=== PATIENT | male | born 1950 | race Caucasian/White ===

== ENCOUNTER 2020-04-22 19:45 | Inpatient (IN) ==
[2020-04-22 21:01] LABS: Basophils % 0.4 % (0.0-0.8); Eosinophils # 0.1 10*3/uL (0.0-0.87); Eosinophils % 1.4 % (0.00-10.9); Hematocrit 41.9 VOL% (42.0-52.0); Hemoglobin 14.2 GM/DL (14.0-18.0); Immature Granulocytes % 0.3 %; Immature Granulocytes Absolute 0.02 #; Lymphocytes # 2.2 10*3/uL (1.4-4.0); Lymphocytes % 28.8 % (21.2-54.2); Mean Corpuscular HGB Conc 33.9 GM/DL (32-36); Mean Platelet Volume 11.1 FL (9.6-12.0); Neutrophils % 51.1 % (38.7-73.9); Platelet Count 107 T/CUMM (130-400); Red Blood Count 4.15 MC/CUMM (3.8-5.5); Red Cell Distribution Width 12.7 % (9.3-17.3); White Blood Count 7.7 T/CUMM (4-12)
[2020-04-22 21:22] LABS: Band Neutrophils 4 % (0-10); Lymphocytes 33 % (20-55); Platelet Estimate Adequate; Segmented Neutrophils 49 % (50-85); Total Cells Counted 100
[2020-04-22 21:30] LABS: Albumin 3.9 G/DL (3.4-5.0); Bilirubin,Total 0.4 MG/DL (0.2-1.0); Calcium 9.5 MG/DL (8.5-10.1); Ferritin 484.8 ng/ml (26-388); Osmolality,Calculated 276.2 MOS/KG (273-304); Total Protein 8.5 G/DL (6.4-8.3)
[2020-04-22] MEDS ORDERED: SODIUM CHLORIDE 0.9% 1,000 ML IV STA (22:01)
[2020-04-22 22:39] LABS: Apearance,Urine CLEAR (Clear); Bacteria,Urine Occasional /HPF (Few); Bilirubin,Urine Negative (Negative); Blood, Urine Small mg/dL (Negative); Glucose,Urine (UA) >=500 mg/dL (Negative); Ketones,Urine 5 mg/dL (Negative); Mucus,Urine Occasional /LPF (Occasional); Nitrite,Urine Negative (Negative); Protein,Urine 100 MG/DL; RBC,Urine 1 /HPF (0-4); Urine Color Yellow (Yellow); Urine Urobilinogen < 2.0 EU/DL (0.2-1.0); WBC,Urine <1 /HPF (0-6)
[2020-04-22 23:03] LABS: Barbiturates Screen,Urine Negative (Negative); Benzodiazepines Screen,Urine Negative (Negative); Cannabinoid Screen,Urine Negative (Negative); Opiate Screen,Urine Positive (Negative); Phencyclidine Screen,Urine Negative (Negative)
[2020-04-22 23:44] LABS: ABG Base Excess 0.3 MMOL/L (-2.5-2.5); ABG HCO3 24.6 MMOL/L (20-26); ABG Oxygen Saturation 94.9 % (95-100); ABG PCO2 35.8 MM HG (35-48); ABG PH 7.436 (7.35-7.45); ABG PO2 72.3 MM HG (80-95)
[2020-04-23] MEDS ORDERED: ACETAMINOPHEN 325 MG TABLET PO PRN (00:01)
[2020-04-23] MEDS ORDERED: ONDANSETRON 4 MG/2 ML VIAL IV PRN (00:01)
[2020-04-23] MEDS: AZITHROMYCIN INJ 500 MG in SODIUM CHLORIDE 0.9% 250 ML IV SCH (02:10)
[2020-04-23] MEDS: SODIUM CHLORIDE 0.9% 1,000 ML IV SCH ×3 (02:35→16:50)
[2020-04-23 05:41] LABS: Basophils % 0.3 % (0.0-0.8); Eosinophils % 0.3 % (0.00-10.9); Hematocrit 37.1 VOL% (42.0-52.0); Hemoglobin 12.6 GM/DL (14.0-18.0); Immature Granulocytes % 0.4 %; Immature Granulocytes Absolute 0.03 #; Lymphocytes # 1.5 10*3/uL (1.4-4.0); Lymphocytes % 20.1 % (21.2-54.2); Mean Corpuscular Volume 98.7 FL (87-102); Mean Platelet Volume 11.2 FL (9.6-12.0); Neutrophils % 64.9 % (38.7-73.9); Platelet Count 88 T/CUMM (130-400); Red Blood Count 3.76 MC/CUMM (3.8-5.5); Red Cell Distribution Width 12.6 % (9.3-17.3); White Blood Count 7.2 T/CUMM (4-12)
[2020-04-23 06:09] LABS: Albumin 3.3 G/DL (3.4-5.0); Bilirubin,Total 0.6 MG/DL (0.2-1.0); Calcium 8.8 MG/DL (8.5-10.1); Osmolality,Calculated 278.2 MOS/KG (273-304); Total Protein 7.3 G/DL (6.4-8.3)
[2020-04-23] MEDS ORDERED: ONDANSETRON 4 MG TABLET PO PRN (09:09)
[2020-04-23] MEDS ORDERED: MELATONIN 3 MG TABLET PO PRN (09:09)
[2020-04-23] MEDS ORDERED: NITROGLYCERIN SL 0.4 MG TABLET SL PRN (09:09)
[2020-04-23] MEDS ORDERED: SIMETHICONE CHEW 125 MG TABLET PO PRN (09:09)
[2020-04-23] MEDS ORDERED: DEXTROSE 50% 25 GM/50 ML VIAL IV PRN (09:12)
[2020-04-23] MEDS ORDERED: GLUCAGON 1 MG VIAL IM PRN (09:12)
[2020-04-23] MEDS ORDERED: INSULIN REGULAR 100 UNIT/ML ONE (09:52)
[2020-04-23] MEDS: FUROSEMIDE 40 MG TABLET PO SCH (10:23)
[2020-04-23] MEDS: PANTOPRAZOLE 40 MG VIAL IV SCH (10:23)
[2020-04-23] MEDS: carvediloL 6.25 MG TABLET PO SCH ×2 (10:23→16:50)
[2020-04-23 10:49] LABS: Atypical Lymphocytes S; Band Neutrophils 2 % (0-10); Lymphocytes 6 % (20-55); Platelet Estimate Adequate; Polychromasia Slight; Segmented Neutrophils 83 % (50-85); Total Cells Counted 100
[2020-04-23] MEDS: INSULIN REGULAR ** CONC 500 UNIT/ML ** 20 ML VIAL SUBCUT SCH ×3 (10:50→20:32)
[2020-04-23] MEDS: HYOSCYAMINE 0.125 MG TABLET SL SCH ×2 (12:59→17:03)
[2020-04-23] MEDS: INSULIN LISPRO 100 UNIT/ML SUBCUT SCH ×3 (12:59→20:31)
[2020-04-23] MEDS: GABAPENTIN 600 MG TABLET PO SCH ×2 (14:14→20:30)
[2020-04-23] MEDS: TEMAZEPAM 7.5 MG CAPSULE PO SCH (20:29)
[2020-04-23] MEDS: PRASUGREL 10 MG TABLET PO SCH (20:29)
[2020-04-23] MEDS: LOSARTAN 50 MG TABLET PO SCH (20:30)
[2020-04-23] MEDS: ASCORBIC ACID 500 MG TABLET PO SCH (20:30)
[2020-04-23] MEDS: ASPIRIN EC 81 MG TABLET PO SCH (20:30)
[2020-04-23] MEDS: ATORVASTATIN 40 MG TABLET PO SCH (20:30)
[2020-04-23] MEDS ORDERED: HYOSCYAMINE 0.125 MG TABLET SL PRN (23:45)
[2020-04-24] MEDS: SODIUM CHLORIDE 0.9% 1,000 ML IV SCH ×3 (00:35→20:18)
[2020-04-24] MEDS: AZITHROMYCIN INJ 500 MG in SODIUM CHLORIDE 0.9% 250 ML IV SCH (02:00)
[2020-04-24] MEDS: INSULIN LISPRO 100 UNIT/ML SUBCUT SCH ×4 (07:33→20:20)
[2020-04-24] MEDS: carvediloL 6.25 MG TABLET PO SCH ×2 (10:13→17:23)
[2020-04-24] MEDS: LORATADINE 10 MG TABLET PO SCH (10:13)
[2020-04-24] MEDS: CHOLECALCIFEROL 1,000 UNIT TABLET PO SCH (10:14)
[2020-04-24] MEDS: FAMOTIDINE 20 MG TABLET PO SCH (10:14)
[2020-04-24] MEDS: INSULIN REGULAR ** CONC 500 UNIT/ML ** 20 ML VIAL SUBCUT SCH ×3 (10:14→20:21)
[2020-04-24] MEDS: GABAPENTIN 600 MG TABLET PO SCH ×3 (10:14→20:19)
[2020-04-24] MEDS: PANTOPRAZOLE 40 MG VIAL IV SCH (10:14)
[2020-04-24] MEDS: FUROSEMIDE 40 MG TABLET PO SCH (10:14)
[2020-04-24] MEDS: ASCORBIC ACID 500 MG TABLET PO SCH ×2 (10:14→20:20)
[2020-04-24] MEDS: ASPIRIN EC 81 MG TABLET PO SCH (20:19)
[2020-04-24] MEDS: LOSARTAN 50 MG TABLET PO SCH (20:19)
[2020-04-24] MEDS: ATORVASTATIN 40 MG TABLET PO SCH (20:20)
[2020-04-24] MEDS: TEMAZEPAM 7.5 MG CAPSULE PO SCH (20:20)
[2020-04-24] MEDS: PRASUGREL 10 MG TABLET PO SCH (20:20)
[2020-04-25] MEDS: AZITHROMYCIN INJ 500 MG in SODIUM CHLORIDE 0.9% 250 ML IV SCH (02:14)
[2020-04-25 05:23] LABS: Basophils % 0.3 % (0.0-0.8); Eosinophils # 0.1 10*3/uL (0.0-0.87); Eosinophils % 1.9 % (0.00-10.9); Hematocrit 38.6 VOL% (42.0-52.0); Hemoglobin 12.8 GM/DL (14.0-18.0); Immature Granulocytes % 0.3 %; Immature Granulocytes Absolute 0.02 #; Lymphocytes # 1.4 10*3/uL (1.4-4.0); Lymphocytes % 21.9 % (21.2-54.2); Mean Corpuscular HGB Conc 33.2 GM/DL (32-36); Mean Corpuscular Volume 101.3 FL (87-102); Mean Platelet Volume 11.3 FL (9.6-12.0); Monocytes % 10.4 % (1.7-12.7); Neutrophils % 65.2 % (38.7-73.9); Platelet Count 103 T/CUMM (130-400); Red Blood Count 3.81 MC/CUMM (3.8-5.5); Red Cell Distribution Width 12.6 % (9.3-17.3); White Blood Count 6.2 T/CUMM (4-12)
[2020-04-25 05:35] LABS: Albumin 3.1 G/DL (3.4-5.0); Bilirubin,Total 0.8 MG/DL (0.2-1.0); Calcium 8.3 MG/DL (8.5-10.1); Osmolality,Calculated 282.5 MOS/KG (273-304); Total Protein 6.9 G/DL (6.4-8.3)
[2020-04-25] MEDS: SODIUM CHLORIDE 0.9% 1,000 ML IV SCH ×2 (06:25→14:36)
[2020-04-25] MEDS: INSULIN LISPRO 100 UNIT/ML SUBCUT SCH ×4 (07:11→21:42)
[2020-04-25] MEDS: ASCORBIC ACID 500 MG TABLET PO SCH ×2 (08:36→21:41)
[2020-04-25] MEDS: FUROSEMIDE 40 MG TABLET PO SCH (08:36)
[2020-04-25] MEDS: FAMOTIDINE 20 MG TABLET PO SCH (08:36)
[2020-04-25] MEDS: GABAPENTIN 600 MG TABLET PO SCH ×3 (08:37→21:41)
[2020-04-25] MEDS: CHOLECALCIFEROL 1,000 UNIT TABLET PO SCH (08:37)
[2020-04-25] MEDS: PANTOPRAZOLE 40 MG VIAL IV SCH (08:37)
[2020-04-25] MEDS: LORATADINE 10 MG TABLET PO SCH (08:37)
[2020-04-25] MEDS: carvediloL 6.25 MG TABLET PO SCH ×2 (08:37→16:31)
[2020-04-25] MEDS: INSULIN REGULAR ** CONC 500 UNIT/ML ** 20 ML VIAL SUBCUT SCH ×3 (08:38→21:42)
[2020-04-25] MEDS: LOSARTAN 50 MG TABLET PO SCH (21:40)
[2020-04-25] MEDS: ASPIRIN EC 81 MG TABLET PO SCH (21:40)
[2020-04-25] MEDS: TEMAZEPAM 7.5 MG CAPSULE PO SCH (21:41)
[2020-04-25] MEDS: PRASUGREL 10 MG TABLET PO SCH (21:41)
[2020-04-25] MEDS: ATORVASTATIN 40 MG TABLET PO SCH (21:42)
[2020-04-26] MEDS: SODIUM CHLORIDE 0.9% 1,000 ML IV SCH ×2 (02:50→16:28)
[2020-04-26] MEDS: INSULIN LISPRO 100 UNIT/ML SUBCUT SCH ×4 (07:25→23:12)
[2020-04-26] MEDS: CHOLECALCIFEROL 1,000 UNIT TABLET PO SCH (08:33)
[2020-04-26] MEDS: ASCORBIC ACID 500 MG TABLET PO SCH ×2 (08:33→21:30)
[2020-04-26] MEDS: FUROSEMIDE 40 MG TABLET PO SCH (08:33)
[2020-04-26] MEDS: FAMOTIDINE 20 MG TABLET PO SCH (08:33)
[2020-04-26] MEDS: carvediloL 6.25 MG TABLET PO SCH ×2 (08:33→16:51)
[2020-04-26] MEDS: AZITHROMYCIN 250 MG TABLET PO SCH (08:34)
[2020-04-26] MEDS: LORATADINE 10 MG TABLET PO SCH (08:34)
[2020-04-26] MEDS: POTASSIUM CHLORIDE 8 MEQ CAPSULE PO SCH (08:34)
[2020-04-26] MEDS: PANTOPRAZOLE 40 MG VIAL IV SCH (08:34)
[2020-04-26] MEDS: INSULIN REGULAR ** CONC 500 UNIT/ML ** 20 ML VIAL SUBCUT SCH ×2 (08:35→16:27)
[2020-04-26] MEDS: GABAPENTIN 600 MG TABLET PO SCH ×3 (08:39→21:30)
[2020-04-26 09:05] LABS: Basophils % 0.2 % (0.0-0.8); Eosinophils % 0.6 % (0.00-10.9); Hematocrit 39.2 VOL% (42.0-52.0); Hemoglobin 13.6 GM/DL (14.0-18.0); Immature Granulocytes % 0.2 %; Immature Granulocytes Absolute 0.01 #; Lymphocytes # 1.3 10*3/uL (1.4-4.0); Lymphocytes % 25.1 % (21.2-54.2); Mean Corpuscular HGB Conc 34.7 GM/DL (32-36); Mean Corpuscular Volume 98.2 FL (87-102); Mean Platelet Volume 10.6 FL (9.6-12.0); Monocytes % 13.2 % (1.7-12.7); Neutrophils % 60.7 % (38.7-73.9); Platelet Count 101 T/CUMM (130-400); Red Blood Count 3.99 MC/CUMM (3.8-5.5); Red Cell Distribution Width 12.5 % (9.3-17.3); White Blood Count 5.1 T/CUMM (4-12)
[2020-04-26 09:24] LABS: Hypochromasia Slight; Macrocytosis Slight; Platelet Estimate Decreased
[2020-04-26 09:34] LABS: Calcium 8.4 MG/DL (8.5-10.1); Osmolality,Calculated 274.2 MOS/KG (273-304)
[2020-04-26] MEDS: TEMAZEPAM 7.5 MG CAPSULE PO SCH (21:30)
[2020-04-26] MEDS: LOSARTAN 50 MG TABLET PO SCH (21:30)
[2020-04-26] MEDS: ATORVASTATIN 40 MG TABLET PO SCH (21:30)
[2020-04-26] MEDS: PRASUGREL 10 MG TABLET PO SCH (21:30)
[2020-04-26] MEDS: ASPIRIN EC 81 MG TABLET PO SCH (21:30)
[2020-04-27] MEDS: INSULIN REGULAR ** CONC 500 UNIT/ML ** 20 ML VIAL SUBCUT SCH ×2 (04:16→10:08)
[2020-04-27] MEDS: SODIUM CHLORIDE 0.9% 1,000 ML IV SCH (06:11)
[2020-04-27 06:38] LABS: Calcium 8.3 MG/DL (8.5-10.1); Osmolality,Calculated 268.1 MOS/KG (273-304)
[2020-04-27 08:26] LABS: Basophils % 0.2 % (0.0-0.8); Eosinophils % 0.4 % (0.00-10.9); Hematocrit 42.4 VOL% (42.0-52.0); Hemoglobin 14.6 GM/DL (14.0-18.0); Immature Granulocytes % 0.4 %; Immature Granulocytes Absolute 0.02 #; Lymphocytes # 1.8 10*3/uL (1.4-4.0); Mean Corpuscular HGB Conc 34.4 GM/DL (32-36); Mean Corpuscular Volume 98.8 FL (87-102); Mean Platelet Volume 10.2 FL (9.6-12.0); Monocytes % 13.3 % (1.7-12.7); Neutrophils % 52.7 % (38.7-73.9); Platelet Count 108 T/CUMM (130-400); Red Blood Count 4.29 MC/CUMM (3.8-5.5); Red Cell Distribution Width 12.6 % (9.3-17.3); White Blood Count 5.3 T/CUMM (4-12)
[2020-04-27] MEDS: PANTOPRAZOLE 40 MG VIAL IV SCH (08:43)
[2020-04-27] MEDS: POTASSIUM CHLORIDE 8 MEQ CAPSULE PO SCH (08:45)
[2020-04-27] MEDS: ASCORBIC ACID 500 MG TABLET PO SCH (08:46)
[2020-04-27] MEDS: FUROSEMIDE 40 MG TABLET PO SCH (08:46)
[2020-04-27] MEDS: GABAPENTIN 600 MG TABLET PO SCH (08:46)
[2020-04-27] MEDS: CHOLECALCIFEROL 1,000 UNIT TABLET PO SCH (08:46)
[2020-04-27] MEDS: AZITHROMYCIN 250 MG TABLET PO SCH (08:46)
[2020-04-27 08:47] VITALS: BP 144/49
[2020-04-27] MEDS: FAMOTIDINE 20 MG TABLET PO SCH (08:47)
[2020-04-27] MEDS: LORATADINE 10 MG TABLET PO SCH (08:47)
[2020-04-27] MEDS: carvediloL 6.25 MG TABLET PO SCH (08:47)
[2020-04-27 08:51] LABS: Hypochromasia 1+; Microcytosis Slight; Ovalocytes Slight; Platelet Estimate Decreased
[2020-04-27] MEDS: INSULIN LISPRO 100 UNIT/ML SUBCUT SCH (09:59)
== END 2020-04-27 10:26 | disposition home health service (06) | DRG 177 ==
LOC: EDUNIT# → EDBD → N.ED 19:45 → N.EDINP 04-23 → N.2E 04-23 01:28
PROVIDERS: ADMIT Internal Medicine; ATTEND Internal Medicine

== ENCOUNTER 2020-04-30 18:06 | Inpatient (IN) ==
[2020-04-30 18:24] LABS: Basophils % 0.1 % (0.0-0.8); Hematocrit 41.7 VOL% (42.0-52.0); Hemoglobin 14.4 GM/DL (14.0-18.0); Immature Granulocytes % 0.4 %; Immature Granulocytes Absolute 0.03 #; Lymphocytes # 1.4 10*3/uL (1.4-4.0); Lymphocytes % 17.6 % (21.2-54.2); Mean Corpuscular HGB Conc 34.5 GM/DL (32-36); Mean Corpuscular Volume 97.7 FL (87-102); Mean Platelet Volume 11.1 FL (9.6-12.0); Monocytes % 6.4 % (1.7-12.7); Neutrophils % 75.5 % (38.7-73.9); Platelet Count 110 T/CUMM (130-400); Red Blood Count 4.27 MC/CUMM (3.8-5.5); Red Cell Distribution Width 12.5 % (9.3-17.3); White Blood Count 7.8 T/CUMM (4-12)
[2020-04-30] MEDS ORDERED: cefTRIAXone 1,000 MG in SODIUM CHLORIDE 0.9% 100 ML IV STA (18:34)
[2020-04-30] MEDS ORDERED: SODIUM CHLORIDE 0.9% 1,000 ML IV STA ×2 (18:34→21:29)
[2020-04-30 18:55] LABS: Bilirubin,Total 0.6 MG/DL (0.2-1.0); Calcium 8.6 MG/DL (8.5-10.1); Ferritin 1002.8 ng/ml (26-388); Osmolality,Calculated 274.9 MOS/KG (273-304); Total Protein 7.9 G/DL (6.4-8.3)
[2020-04-30] MEDS ORDERED: GLUCAGON 1 MG VIAL IM PRN (23:52)
[2020-04-30] MEDS ORDERED: IBUPROFEN 600 MG TABLET PO PRN (23:52)
[2020-04-30] MEDS ORDERED: DEXTROSE 50% 25 GM/50 ML VIAL IV PRN (23:52)
[2020-04-30] MEDS ORDERED: ONDANSETRON 4 MG/2 ML VIAL IV PRN (23:52)
[2020-05-01] MEDS: SODIUM CHLORIDE 0.9% 1,000 ML IV SCH ×3 (00:02→17:36)
[2020-05-01 04:13] LABS: ABG Base Excess -0.8 MMOL/L (-2.5-2.5); ABG HCO3 23.7 MMOL/L (20-26); ABG Oxygen Saturation 97.9 % (95-100); ABG PCO2 33.3 MM HG (35-48); ABG PH 7.439 (7.35-7.45); ABG TCO2 19.6 MMOL/L (23-27)
[2020-05-01] MEDS: INSULIN REGULAR 100 UNIT/ML SUBCUT SCH ×3 (06:06→17:49)
[2020-05-01] MEDS ORDERED: INSULIN REGULAR 100 UNIT/ML ONE (06:10)
[2020-05-01] MEDS ORDERED: NITROGLYCERIN SL 0.4 MG TABLET SL PRN (07:08)
[2020-05-01] MEDS ORDERED: guaiFENesin/CODEINE 5 ML LIQUID PO PRN (07:08)
[2020-05-01] MEDS ORDERED: FUROSEMIDE 40 MG TABLET ONE (08:42)
[2020-05-01] MEDS ORDERED: DOCUSATE SODIUM 100 MG CAPSULE ONE (08:42)
[2020-05-01] MEDS ORDERED: carvediloL 3.125 MG TABLET ONE (08:43)
[2020-05-01] MEDS ORDERED: PANTOPRAZOLE 40 MG TABLET PO ONE (08:43)
[2020-05-01] MEDS ORDERED: FAMOTIDINE 20 MG TABLET ONE (08:44)
[2020-05-01] MEDS ORDERED: HYDROXYCHLOROQUINE 200 MG TABLET PO SCH ×2 (09:00)
[2020-05-01] MEDS: DOCUSATE SODIUM 100 MG CAPSULE PO SCH ×2 (09:02→20:44)
[2020-05-01] MEDS: carvediloL 6.25 MG TABLET PO SCH ×2 (09:05→20:43)
[2020-05-01] MEDS: FUROSEMIDE 40 MG TABLET PO SCH (09:05)
[2020-05-01] MEDS: FAMOTIDINE 20 MG TABLET PO SCH (09:05)
[2020-05-01] MEDS: PANTOPRAZOLE 40 MG TABLET PO SCH (09:45)
[2020-05-01] MEDS: CHOLECALCIFEROL 1,000 UNIT TABLET PO SCH (09:45)
[2020-05-01] MEDS: DEXAMETHASONE 4 MG/1 ML VIAL IV SCH ×3 (10:14→21:18)
[2020-05-01] MEDS ORDERED: ENOXAPARIN 40 MG/0.4 ML SYRINGE ONE (10:20)
[2020-05-01] MEDS: ENOXAPARIN 40 MG/0.4 ML SYRINGE SUBCUT SCH ×2 (10:21→20:44)
[2020-05-01] MEDS ORDERED: INSULIN LISPRO 100 UNIT/ML ONE (14:25)
[2020-05-01] MEDS: ZINC SULFATE 220 MG CAPSULE PO SCH (17:36)
[2020-05-01] MEDS: ATORVASTATIN 40 MG TABLET PO SCH (20:43)
[2020-05-01] MEDS: PRASUGREL 10 MG TABLET PO SCH (20:44)
[2020-05-01] MEDS: LOSARTAN 50 MG TABLET PO SCH (21:26)
[2020-05-02] MEDS: INSULIN REGULAR 100 UNIT/ML SUBCUT SCH ×4 (00:10→18:36)
[2020-05-02] MEDS: SODIUM CHLORIDE 0.9% 1,000 ML IV SCH ×3 (03:26→16:58)
[2020-05-02] MEDS: DOCUSATE SODIUM 100 MG CAPSULE PO SCH ×2 (09:26→20:57)
[2020-05-02] MEDS: carvediloL 6.25 MG TABLET PO SCH ×2 (09:26→20:57)
[2020-05-02] MEDS: FUROSEMIDE 40 MG TABLET PO SCH (09:26)
[2020-05-02] MEDS: PANTOPRAZOLE 40 MG TABLET PO SCH (09:26)
[2020-05-02] MEDS: FAMOTIDINE 20 MG TABLET PO SCH (09:26)
[2020-05-02] MEDS: CHOLECALCIFEROL 1,000 UNIT TABLET PO SCH (09:27)
[2020-05-02] MEDS: DEXAMETHASONE 4 MG/1 ML VIAL IV SCH ×3 (09:27→20:57)
[2020-05-02] MEDS: DOXYCYCLINE HYCLATE INJ 100 MG in SODIUM CHLORIDE 0.9% 100 ML IV SCH ×2 (09:28→20:58)
[2020-05-02] MEDS: ENOXAPARIN 40 MG/0.4 ML SYRINGE SUBCUT SCH ×2 (09:28→20:58)
[2020-05-02 10:22] LABS: Hematocrit 38.4 VOL% (42.0-52.0); Hemoglobin 13.5 GM/DL (14.0-18.0); Immature Granulocytes % 0.4 %; Immature Granulocytes Absolute 0.02 #; Lymphocytes # 0.6 10*3/uL (1.4-4.0); Mean Corpuscular HGB Conc 35.2 GM/DL (32-36); Mean Corpuscular Volume 95.5 FL (87-102); Mean Platelet Volume 11.1 FL (9.6-12.0); Monocytes % 5.1 % (1.7-12.7); Neutrophils % 84.5 % (38.7-73.9); Platelet Count 109 T/CUMM (130-400); Red Blood Count 4.02 MC/CUMM (3.8-5.5); Red Cell Distribution Width 12.4 % (9.3-17.3); White Blood Count 5.5 T/CUMM (4-12)
[2020-05-02 10:41] LABS: Albumin 2.6 G/DL (3.4-5.0); Bilirubin,Total 0.6 MG/DL (0.2-1.0); Calcium 9.1 MG/DL (8.5-10.1); Total Protein 7.5 G/DL (6.4-8.3)
[2020-05-02] MEDS: ATORVASTATIN 40 MG TABLET PO SCH (20:57)
[2020-05-02] MEDS: LOSARTAN 50 MG TABLET PO SCH (20:57)
[2020-05-02] MEDS: PRASUGREL 10 MG TABLET PO SCH (20:57)
[2020-05-03] MEDS: INSULIN REGULAR 100 UNIT/ML SUBCUT SCH ×4 (00:42→18:12)
[2020-05-03] MEDS: SODIUM CHLORIDE 0.9% 1,000 ML IV SCH ×3 (04:29→16:11)
[2020-05-03 06:28] LABS: Basophils % 0.1 % (0.0-0.8); Hematocrit 40.7 VOL% (42.0-52.0); Hemoglobin 14.3 GM/DL (14.0-18.0); Immature Granulocytes % 0.5 %; Immature Granulocytes Absolute 0.04 #; Lymphocytes # 0.7 10*3/uL (1.4-4.0); Lymphocytes % 8.1 % (21.2-54.2); Mean Corpuscular HGB Conc 35.1 GM/DL (32-36); Mean Corpuscular Volume 95.8 FL (87-102); Monocytes % 5.6 % (1.7-12.7); Neutrophils % 85.7 % (38.7-73.9); Platelet Count 134 T/CUMM (130-400); Red Blood Count 4.25 MC/CUMM (3.8-5.5); Red Cell Distribution Width 12.5 % (9.3-17.3); White Blood Count 8.4 T/CUMM (4-12)
[2020-05-03] MEDS: carvediloL 6.25 MG TABLET PO SCH ×2 (09:03→20:30)
[2020-05-03] MEDS: ENOXAPARIN 40 MG/0.4 ML SYRINGE SUBCUT SCH ×2 (09:03→20:30)
[2020-05-03] MEDS: CHOLECALCIFEROL 1,000 UNIT TABLET PO SCH (09:03)
[2020-05-03] MEDS: PANTOPRAZOLE 40 MG TABLET PO SCH (09:03)
[2020-05-03] MEDS: FUROSEMIDE 40 MG TABLET PO SCH (09:03)
[2020-05-03] MEDS: DOCUSATE SODIUM 100 MG CAPSULE PO SCH ×2 (09:03→20:30)
[2020-05-03] MEDS: FAMOTIDINE 20 MG TABLET PO SCH (09:03)
[2020-05-03] MEDS: ZINC SULFATE 220 MG CAPSULE PO SCH (09:03)
[2020-05-03] MEDS: INSULIN GLARGINE 100 UNIT/ML SUBCUT SCH (09:04)
[2020-05-03] MEDS: DEXAMETHASONE 4 MG/1 ML VIAL IV SCH ×3 (09:05→20:30)
[2020-05-03] MEDS: DOXYCYCLINE HYCLATE INJ 100 MG in SODIUM CHLORIDE 0.9% 100 ML IV SCH ×2 (09:06→20:33)
[2020-05-03] MEDS: ATORVASTATIN 40 MG TABLET PO SCH (20:30)
[2020-05-03] MEDS: LOSARTAN 50 MG TABLET PO SCH (20:30)
[2020-05-03] MEDS: PRASUGREL 10 MG TABLET PO SCH (20:30)
[2020-05-04] MEDS: INSULIN REGULAR 100 UNIT/ML SUBCUT SCH ×2 (00:38→08:00)
[2020-05-04] MEDS: SODIUM CHLORIDE 0.9% 1,000 ML IV SCH ×3 (03:09→18:13)
[2020-05-04] MEDS ORDERED: hydrALAZINE 20 MG/1 ML VIAL IV ONE (04:17)
[2020-05-04] MEDS ORDERED: ETOMIDATE 20 MG/10 ML VIAL IV ONE (05:19)
[2020-05-04] MEDS ORDERED: VECURONIUM 10 MG VIAL IV ONE (05:21)
[2020-05-04 06:21] LABS: Allen Test Positive; Pt O2 Delivery Device Ventilator
[2020-05-04] MEDS ORDERED: hydrALAZINE 20 MG/1 ML VIAL IV PRN (06:21)
[2020-05-04 06:22] LABS: ABG Base Excess -9.3 MMOL/L (-2.5-2.5); ABG HCO3 17.2 MMOL/L (20-26); ABG Oxygen Saturation 98.8 % (95-100); ABG PH 7.267 (7.35-7.45)
[2020-05-04] MEDS ORDERED: amLODIPine 10 MG TABLET PER TUBE SCH (06:22)
[2020-05-04] MEDS ORDERED: FAMOTIDINE 20 MG/2 ML VIAL IV SCH (06:30)
[2020-05-04] MEDS ORDERED: SODIUM CHLORIDE 0.9% 1,000 ML IV ONE (07:01)
[2020-05-04] MEDS ORDERED: NOREPINEPHRINE 4 MG/4 ML VIAL IV ONE (07:02)
[2020-05-04 07:16] LABS: Amorphous Crystals,Urine Few /HPF (Few); Apearance,Urine CLEAR (Clear); Bacteria,Urine Occasional /HPF (Few); Bilirubin,Urine Negative (Negative); Blood, Urine Moderate mg/dL (Negative); Glucose,Urine (UA) >=500 mg/dL (Negative); Hyaline Casts,Urine 4 /LPF (0-3); Ketones,Urine Negative (Negative); Mucus,Urine Occasional /LPF (Occasional); Nitrite,Urine Negative (Negative); Protein,Urine 100 MG/DL; Squamous Epithelial Cell,Urine Occasional /HPF (0-10); Urine Color Yellow (Yellow); Urine Specific Gravity 1.022 (1.001-1.035); Urine Urobilinogen < 2.0 EU/DL (0.2-1.0); WBC,Urine <1 /HPF (0-6)
[2020-05-04] MEDS: NOREPINEPHRINE 8 MG in SODIUM CHLORIDE 0.9% 242 ML IV PRN (07:26)
[2020-05-04] MEDS ORDERED: ENOXAPARIN 60 MG/0.6 ML SYRINGE ONE (07:52)
[2020-05-04] MEDS ORDERED: INSULIN REGULAR 100 UNIT/ML ONE (08:03)
[2020-05-04 08:16] LABS: Basophils % 0.1 % (0.0-0.8); Hematocrit 42.2 VOL% (42.0-52.0); Hemoglobin 14.3 GM/DL (14.0-18.0); Immature Granulocytes % 0.7 %; Immature Granulocytes Absolute 0.09 #; Lymphocytes # 0.6 10*3/uL (1.4-4.0); Lymphocytes % 4.6 % (21.2-54.2); Mean Corpuscular HGB Conc 33.9 GM/DL (32-36); Mean Corpuscular Volume 98.1 FL (87-102); Mean Platelet Volume 11.4 FL (9.6-12.0); Monocytes % 7.5 % (1.7-12.7); Neutrophils % 87.1 % (38.7-73.9); Platelet Count 165 T/CUMM (130-400); Red Cell Distribution Width 12.8 % (9.3-17.3); White Blood Count 12.9 T/CUMM (4-12)
[2020-05-04 08:34] LABS: Lymphocytes 4 % (20-55); Segmented Neutrophils 89 % (50-85); Total Cells Counted 100
[2020-05-04 08:35] LABS: Hypochromasia 1+; Microcytosis Slight; Platelet Estimate Adequate
[2020-05-04 08:43] LABS: Osmolality,Calculated 320.1 MOS/KG (273-304)
[2020-05-04] MEDS: INSULIN GLARGINE 100 UNIT/ML SUBCUT SCH (08:54)
[2020-05-04] MEDS: DOCUSATE SODIUM 100 MG CAPSULE PO SCH ×2 (08:54→20:17)
[2020-05-04] MEDS: DEXAMETHASONE 4 MG/1 ML VIAL IV SCH (08:54)
[2020-05-04] MEDS: CHOLECALCIFEROL 1,000 UNIT TABLET PO SCH (08:54)
[2020-05-04] MEDS: ENOXAPARIN 60 MG/0.6 ML SYRINGE SUBCUT SCH ×2 (08:54→20:18)
[2020-05-04] MEDS ORDERED: cloNIDine 0.3 MG/24 HR PATCH TRANSDERM SCH (09:00)
[2020-05-04] MEDS ORDERED: DEXTROSE 10% 250 ML BAG IV PRN (09:16)
[2020-05-04] MEDS ORDERED: SODIUM PHOSPHATE INJ 26 MMOL in SODIUM CHLORIDE 0.9% 250 ML IV PRN (09:16)
[2020-05-04] MEDS ORDERED: INSULIN REGULAR 100 UNIT/ML IV ONE (09:16)
[2020-05-04] MEDS ORDERED: POTASSIUM CHLORIDE RIDER 10 MEQ in PREMIX 1 EACH IV PRN (09:16)
[2020-05-04] MEDS ORDERED: MAGNESIUM SULF RIDER 2 GM in PREMIX 1 EACH IV PRN (09:16)
[2020-05-04] MEDS ORDERED: MAGNESIUM SULF RIDER 4 GM in PREMIX 1 EACH IV PRN (09:16)
[2020-05-04] MEDS: DOXYCYCLINE HYCLATE INJ 100 MG in SODIUM CHLORIDE 0.9% 100 ML IV SCH ×2 (10:00→20:26)
[2020-05-04] MEDS ORDERED: INSULIN REGULAR 100 UNIT/ML SUBCUT SCH (10:00)
[2020-05-04] MEDS: INSULIN REGULAR DRIP 100 ML IV SCH ×2 (11:12→16:54)
[2020-05-04] MEDS: MIDAZOLAM 100 MG in SODIUM CHLORIDE 0.9% 80 ML IV PRN (12:15)
[2020-05-04] MEDS ORDERED: SODIUM CHLORIDE 0.9% 1,000 ML IV SCH (14:16)
[2020-05-04 14:24] LABS: Calcium 9.1 MG/DL (8.5-10.1); Osmolality,Calculated 317.6 MOS/KG (273-304)
[2020-05-04 18:01] LABS: Calcium 9.3 MG/DL (8.5-10.1); Osmolality,Calculated 313.1 MOS/KG (273-304)
[2020-05-04] MEDS: DEXTROSE 10% 250 ML BAG IV PRN (19:49)
[2020-05-04] MEDS: PRASUGREL 10 MG TABLET PER TUBE SCH (20:17)
[2020-05-04 21:45] LABS: Calcium 9.3 MG/DL (8.5-10.1); Osmolality,Calculated 313.7 MOS/KG (273-304)
[2020-05-05] MEDS: SODIUM CHLORIDE 0.9% 1,000 ML IV SCH (00:34)
[2020-05-05] MEDS: DEXTROSE 10% 250 ML BAG IV PRN (01:25)
[2020-05-05] MEDS: DEXTROSE 5% NACL 0.45% 1,000 ML IV SCH ×2 (01:38→13:29)
[2020-05-05 03:31] LABS: Basophils % 0.1 % (0.0-0.8); Hematocrit 39.4 VOL% (42.0-52.0); Hemoglobin 12.9 GM/DL (14.0-18.0); Immature Granulocytes % 0.3 %; Immature Granulocytes Absolute 0.03 #; Lymphocytes # 1.1 10*3/uL (1.4-4.0); Lymphocytes % 11.8 % (21.2-54.2); Mean Corpuscular HGB Conc 32.7 GM/DL (32-36); Mean Corpuscular Volume 102.1 FL (87-102); Mean Platelet Volume 10.9 FL (9.6-12.0); Monocytes % 7.8 % (1.7-12.7); Platelet Count 119 T/CUMM (130-400); Red Blood Count 3.86 MC/CUMM (3.8-5.5); Red Cell Distribution Width 13.2 % (9.3-17.3); White Blood Count 9.2 T/CUMM (4-12)
[2020-05-05 03:50] LABS: Calcium 8.6 MG/DL (8.5-10.1); Osmolality,Calculated 316.3 MOS/KG (273-304)
[2020-05-05 03:52] LABS: Atypical Lymphocytes Few; Band Neutrophils 1 % (0-10); Hypochromasia 1+; Lymphocytes 9 % (20-55); Segmented Neutrophils 86 % (50-85); Total Cells Counted 100
[2020-05-05 03:53] LABS: Microcytosis Slight
[2020-05-05 05:01] LABS: ABG Base Excess -2.4 MMOL/L (-2.5-2.5); ABG HCO3 22.4 MMOL/L (20-26); ABG Oxygen Saturation 98.9 % (95-100); ABG PCO2 33.7 MM HG (35-48); ABG PH 7.411 (7.35-7.45); ABG TCO2 18.6 MMOL/L (23-27)
[2020-05-05] MEDS: INSULIN REGULAR DRIP 100 ML IV SCH ×2 (05:51→10:10)
[2020-05-05] MEDS: MIDAZOLAM 100 MG in SODIUM CHLORIDE 0.9% 80 ML IV PRN (06:55)
[2020-05-05] MEDS: ENOXAPARIN 60 MG/0.6 ML SYRINGE SUBCUT SCH ×2 (08:01→20:02)
[2020-05-05] MEDS: DOCUSATE SODIUM 100 MG CAPSULE PO SCH ×2 (08:02→20:02)
[2020-05-05] MEDS: ZINC SULFATE 220 MG CAPSULE PO SCH (08:02)
[2020-05-05] MEDS: CHOLECALCIFEROL 1,000 UNIT TABLET PO SCH (08:02)
[2020-05-05] MEDS: DEXAMETHASONE 4 MG/1 ML VIAL IV SCH (08:02)
[2020-05-05] MEDS: FENOFIBRATE 145 MG TABLET PO SCH (09:19)
[2020-05-05] MEDS: FAMOTIDINE 20 MG/2 ML VIAL IV SCH (09:19)
[2020-05-05] MEDS: DOXYCYCLINE HYCLATE INJ 100 MG in SODIUM CHLORIDE 0.9% 100 ML IV SCH ×2 (09:19→20:04)
[2020-05-05] MEDS: NOREPINEPHRINE 8 MG in SODIUM CHLORIDE 0.9% 242 ML IV PRN (12:28)
[2020-05-05] MEDS ORDERED: INSULIN GLARGINE 100 UNIT/ML SUBCUT SCH (13:00)
[2020-05-05] MEDS: PRASUGREL 10 MG TABLET PER TUBE SCH (20:02)
[2020-05-05] MEDS: ASPIRIN EC 81 MG TABLET PO SCH (20:04)
[2020-05-05] MEDS ORDERED: INSULIN REGULAR 100 UNIT/ML IV ONE (21:18)
[2020-05-05] MEDS ORDERED: INSULIN REGULAR 100 UNIT/ML SUBCUT SCH (22:00)
[2020-05-05] MEDS: ACETAMINOPHEN 325 MG TABLET PO PRN (22:31)
[2020-05-06] MEDS ORDERED: INSULIN REGULAR 100 UNIT/ML SUBCUT SCH
[2020-05-06] MEDS ORDERED: DEXTROSE 5% NACL 0.45% 1,000 ML IV SCH (03:00)
[2020-05-06] MEDS: INSULIN REGULAR DRIP 100 ML IV PRN ×5 (03:07→22:31)
[2020-05-06 04:39] LABS: Basophils % 0.2 % (0.0-0.8); Hematocrit 38.9 VOL% (42.0-52.0); Hemoglobin 12.8 GM/DL (14.0-18.0); Immature Granulocytes % 0.7 %; Immature Granulocytes Absolute 0.04 #; Lymphocytes # 0.8 10*3/uL (1.4-4.0); Lymphocytes % 14.2 % (21.2-54.2); Mean Corpuscular HGB Conc 32.9 GM/DL (32-36); Mean Corpuscular Volume 100.5 FL (87-102); Monocytes % 7.3 % (1.7-12.7); Neutrophils % 77.6 % (38.7-73.9); Platelet Count 110 T/CUMM (130-400); Red Blood Count 3.87 MC/CUMM (3.8-5.5); Red Cell Distribution Width 13.3 % (9.3-17.3); White Blood Count 5.8 T/CUMM (4-12)
[2020-05-06 04:40] LABS: ABG Base Excess -2.8 MMOL/L (-2.5-2.5); ABG HCO3 22.1 MMOL/L (20-26); ABG Oxygen Saturation 99.3 % (95-100); ABG PCO2 33.9 MM HG (35-48); ABG PH 7.404 (7.35-7.45); ABG TCO2 18.4 MMOL/L (23-27)
[2020-05-06 04:57] LABS: Ferritin 1115.3 ng/ml (26-388)
[2020-05-06 05:42] LABS: Osmolality,Calculated 325.4 MOS/KG (273-304)
[2020-05-06] MEDS: MIDAZOLAM 100 MG in SODIUM CHLORIDE 0.9% 80 ML IV PRN (05:55)
[2020-05-06] MEDS: DOCUSATE SODIUM 100 MG CAPSULE PO SCH ×2 (10:02→22:30)
[2020-05-06] MEDS: DEXAMETHASONE 4 MG/1 ML VIAL IV SCH (10:02)
[2020-05-06] MEDS: FENOFIBRATE 145 MG TABLET PO SCH (10:02)
[2020-05-06] MEDS: ENOXAPARIN 60 MG/0.6 ML SYRINGE SUBCUT SCH ×2 (10:03→21:30)
[2020-05-06] MEDS: FAMOTIDINE 20 MG/2 ML VIAL IV SCH (10:03)
[2020-05-06] MEDS: CHOLECALCIFEROL 1,000 UNIT TABLET PO SCH (10:08)
[2020-05-06] MEDS: DOXYCYCLINE HYCLATE INJ 100 MG in SODIUM CHLORIDE 0.9% 100 ML IV SCH ×2 (10:25→22:30)
[2020-05-06 10:28] LABS: Calcium 9.2 MG/DL (8.5-10.1)
[2020-05-06] MEDS: ACETAMINOPHEN 325 MG TABLET PO PRN ×3 (11:45→22:00)
[2020-05-06 20:32] LABS: Calcium 9.3 MG/DL (8.5-10.1); Osmolality,Calculated 322.1 MOS/KG (273-304)
[2020-05-06] MEDS: ATORVASTATIN 40 MG TABLET PER TUBE SCH (21:30)
[2020-05-06] MEDS: PRASUGREL 10 MG TABLET PER TUBE SCH (21:30)
[2020-05-06] MEDS: ASPIRIN EC 81 MG TABLET PO SCH (21:30)
[2020-05-06 23:59] LABS: Calcium 9.2 MG/DL (8.5-10.1)
[2020-05-07] MEDS: INSULIN REGULAR DRIP 100 ML IV PRN ×3 (02:41→09:52)
[2020-05-07 03:42] LABS: Basophils % 0.2 % (0.0-0.8); Hematocrit 43.5 VOL% (42.0-52.0); Hemoglobin 14.4 GM/DL (14.0-18.0); Immature Granulocytes % 0.5 %; Immature Granulocytes Absolute 0.05 #; Lymphocytes # 0.8 10*3/uL (1.4-4.0); Lymphocytes % 8.4 % (21.2-54.2); Mean Corpuscular HGB Conc 33.1 GM/DL (32-36); Mean Corpuscular Volume 100.5 FL (87-102); Mean Platelet Volume 11.7 FL (9.6-12.0); Monocytes % 6.4 % (1.7-12.7); Neutrophils % 84.5 % (38.7-73.9); Platelet Count 138 T/CUMM (130-400); Red Blood Count 4.33 MC/CUMM (3.8-5.5); Red Cell Distribution Width 13.2 % (9.3-17.3); White Blood Count 9.8 T/CUMM (4-12)
[2020-05-07 04:04] LABS: Calcium 9.5 MG/DL (8.5-10.1); Osmolality,Calculated 320.9 MOS/KG (273-304)
[2020-05-07 04:07] LABS: Ferritin 1008.8 ng/ml (26-388)
[2020-05-07] MEDS: ACETAMINOPHEN 325 MG TABLET PO PRN ×5 (05:00→21:05)
[2020-05-07 05:02] LABS: Allen Test Positive; Pt O2 Delivery Device Ventilator
[2020-05-07 05:05] LABS: ABG HCO3 23.6 MMOL/L (20-26); ABG PCO2 35.2 MM HG (35-48)
[2020-05-07] MEDS: FAMOTIDINE 20 MG/2 ML VIAL IV SCH (08:34)
[2020-05-07] MEDS: FENOFIBRATE 145 MG TABLET PO SCH (08:34)
[2020-05-07] MEDS: DEXAMETHASONE 4 MG/1 ML VIAL IV SCH (08:34)
[2020-05-07] MEDS: CHOLECALCIFEROL 1,000 UNIT TABLET PO SCH (08:34)
[2020-05-07] MEDS: ENOXAPARIN 60 MG/0.6 ML SYRINGE SUBCUT SCH ×2 (08:34→20:31)
[2020-05-07] MEDS: DOXYCYCLINE HYCLATE INJ 100 MG in SODIUM CHLORIDE 0.9% 100 ML IV SCH ×2 (08:35→21:40)
[2020-05-07] MEDS: DOCUSATE SODIUM 100 MG CAPSULE PO SCH ×2 (11:11→20:31)
[2020-05-07] MEDS ORDERED: DILTIAZEM 50 MG/10 ML VIAL IV ONE (12:22)
[2020-05-07] MEDS ORDERED: DILTIAZEM 25 MG/5 ML VIAL IV ONE (12:23)
[2020-05-07] MEDS ORDERED: DILTIAZEM 30 MG TABLET PO SCH (13:00)
[2020-05-07] MEDS: PIPERACILLIN/TAZOBACTAM 3,375 MG in SODIUM CHLORIDE 0.9% 100 ML IV SCH ×2 (13:30→20:32)
[2020-05-07] MEDS ORDERED: DIGOXIN 0.5 MG/2 ML AMP IV ONE (14:05)
[2020-05-07] MEDS: dilTIAZem Drip 125 MG/125 ML PREMIX IV SCH ×2 (14:28→20:42)
[2020-05-07] MEDS: VANCOMYCIN INJ 1,500 MG in SODIUM CHLORIDE 0.9% 500 ML IV SCH (17:36)
[2020-05-07] MEDS: ASPIRIN EC 81 MG TABLET PO SCH (20:31)
[2020-05-07] MEDS: PRASUGREL 10 MG TABLET PER TUBE SCH (20:31)
[2020-05-07] MEDS: ATORVASTATIN 40 MG TABLET PER TUBE SCH (20:31)
[2020-05-07] MEDS ORDERED: INSULIN REGULAR 100 UNIT/ML IV ONE (21:55)
[2020-05-08] MEDS ORDERED: INSULIN REGULAR 100 UNIT/ML IV ONE ×4 (02:01→19:35)
[2020-05-08] MEDS: PIPERACILLIN/TAZOBACTAM 3,375 MG in SODIUM CHLORIDE 0.9% 100 ML IV SCH ×3 (04:50→21:26)
[2020-05-08] MEDS: dilTIAZem Drip 125 MG/125 ML PREMIX IV SCH ×2 (04:50→14:40)
[2020-05-08 05:20] LABS: ABG Base Excess -2.9 MMOL/L (-2.5-2.5); ABG HCO3 20.5 MMOL/L (20-26); ABG Oxygen Saturation 96.7 % (95-100); ABG PH 7.424 (7.35-7.45); ABG PO2 91.5 MM HG (80-95); ABG TCO2 21.5 MMOL/L (23-27); Allen Test Positive; Pt O2 Delivery Device Ventilator
[2020-05-08] MEDS: INSULIN REGULAR DRIP 100 ML IV PRN ×2 (06:19→12:20)
[2020-05-08 07:03] LABS: Basophils % 0.1 % (0.0-0.8); Hematocrit 41.4 VOL% (42.0-52.0); Hemoglobin 13.6 GM/DL (14.0-18.0); Immature Granulocytes % 0.6 %; Immature Granulocytes Absolute 0.08 #; Lymphocytes # 1.1 10*3/uL (1.4-4.0); Lymphocytes % 7.7 % (21.2-54.2); Mean Corpuscular HGB Conc 32.9 GM/DL (32-36); Mean Corpuscular Volume 101.5 FL (87-102); Mean Platelet Volume 12.4 FL (9.6-12.0); Monocytes % 2.1 % (1.7-12.7); Neutrophils % 89.5 % (38.7-73.9); Platelet Count 125 T/CUMM (130-400); Red Blood Count 4.08 MC/CUMM (3.8-5.5); White Blood Count 13.6 T/CUMM (4-12)
[2020-05-08 07:14] LABS: Ferritin 788.9 ng/ml (26-388)
[2020-05-08 07:22] LABS: Calcium 8.6 MG/DL (8.5-10.1); Osmolality,Calculated 324.3 MOS/KG (273-304)
[2020-05-08] MEDS: FAMOTIDINE 20 MG/2 ML VIAL IV SCH (08:15)
[2020-05-08] MEDS: FENOFIBRATE 145 MG TABLET PO SCH (08:15)
[2020-05-08] MEDS: CHOLECALCIFEROL 1,000 UNIT TABLET PO SCH (08:15)
[2020-05-08] MEDS: DEXAMETHASONE 4 MG/1 ML VIAL IV SCH (08:15)
[2020-05-08] MEDS: DOCUSATE SODIUM 100 MG CAPSULE PO SCH ×2 (08:15→21:25)
[2020-05-08] MEDS: ENOXAPARIN 60 MG/0.6 ML SYRINGE SUBCUT SCH ×2 (08:16→21:26)
[2020-05-08] MEDS: VANCOMYCIN INJ 1,500 MG in SODIUM CHLORIDE 0.9% 500 ML IV SCH (16:25)
[2020-05-08] MEDS: PRASUGREL 10 MG TABLET PER TUBE SCH (21:25)
[2020-05-08] MEDS: ATORVASTATIN 40 MG TABLET PER TUBE SCH (21:25)
[2020-05-08] MEDS: ASPIRIN EC 81 MG TABLET PO SCH (21:25)
[2020-05-09] MEDS: INSULIN REGULAR DRIP 100 ML IV PRN (00:03)
[2020-05-09 04:12] LABS: Basophils % 0.1 % (0.0-0.8); Hematocrit 40.5 VOL% (42.0-52.0); Hemoglobin 13.4 GM/DL (14.0-18.0); Immature Granulocytes % 0.6 %; Lymphocytes # 0.9 10*3/uL (1.4-4.0); Lymphocytes % 5.4 % (21.2-54.2); Mean Corpuscular HGB Conc 33.1 GM/DL (32-36); Mean Corpuscular Volume 100.7 FL (87-102); Mean Platelet Volume 12.7 FL (9.6-12.0); NRBC # 0.02 10*3/uL; Neutrophils % 89.9 % (38.7-73.9); Platelet Count 123 T/CUMM (130-400); Red Blood Count 4.02 MC/CUMM (3.8-5.5); Red Cell Distribution Width 12.7 % (9.3-17.3); White Blood Count 17.1 T/CUMM (4-12)
[2020-05-09 04:29] LABS: Calcium 9.5 MG/DL (8.5-10.1)
[2020-05-09 04:34] LABS: Ferritin 741.1 ng/ml (26-388)
[2020-05-09] MEDS: MIDAZOLAM 100 MG in SODIUM CHLORIDE 0.9% 80 ML IV PRN (04:35)
[2020-05-09 04:56] LABS: ABG Base Excess -0.3 MMOL/L (-2.5-2.5); ABG HCO3 24.1 MMOL/L (20-26); ABG Oxygen Saturation 95.9 % (95-100); ABG PCO2 33.6 MM HG (35-48); ABG PH 7.445 (7.35-7.45); ABG TCO2 19.9 MMOL/L (23-27); Allen Test Positive; Pt O2 Delivery Device Ventilator
[2020-05-09] MEDS: PIPERACILLIN/TAZOBACTAM 3,375 MG in SODIUM CHLORIDE 0.9% 100 ML IV SCH (06:05)
[2020-05-09] MEDS: dilTIAZem Drip 125 MG/125 ML PREMIX IV SCH (06:43)
[2020-05-09] MEDS: FAMOTIDINE 20 MG/2 ML VIAL IV SCH (08:33)
[2020-05-09] MEDS: ENOXAPARIN 60 MG/0.6 ML SYRINGE SUBCUT SCH ×2 (08:34→21:25)
[2020-05-09] MEDS: CHOLECALCIFEROL 1,000 UNIT TABLET PO SCH (08:34)
[2020-05-09] MEDS: FENOFIBRATE 145 MG TABLET PO SCH (08:34)
[2020-05-09] MEDS: DOCUSATE SODIUM 100 MG CAPSULE PO SCH ×2 (08:34→21:25)
[2020-05-09] MEDS: DEXAMETHASONE 4 MG/1 ML VIAL IV SCH (08:34)
[2020-05-09] MEDS ORDERED: levETIRAcetam LIQUID 100 MG/ML 30 ML/BOTTLE PO SCH (09:00)
[2020-05-09] MEDS: DEXMEDETOMIDINE 200 MCG in SODIUM CHLORIDE 0.9% 48 ML IV PRN ×3 (12:25→21:23)
[2020-05-09] MEDS ORDERED: INSULIN GLARGINE 100 UNIT/ML SUBCUT SCH (12:30)
[2020-05-09] MEDS: CEFEPIME 1,000 MG in SODIUM CHLORIDE 0.9% 100 ML IV SCH ×2 (13:12→18:04)
[2020-05-09] MEDS: DILTIAZEM 30 MG TABLET PO SCH ×3 (13:15→21:24)
[2020-05-09] MEDS: INSULIN LISPRO 100 UNIT/ML SUBCUT SCH ×2 (17:26→20:35)
[2020-05-09] MEDS: ACETAMINOPHEN 325 MG TABLET PO PRN (21:00)
[2020-05-09] MEDS: ASPIRIN EC 81 MG TABLET PO SCH (21:24)
[2020-05-09] MEDS: PRASUGREL 10 MG TABLET PER TUBE SCH (21:25)
[2020-05-09] MEDS: ATORVASTATIN 40 MG TABLET PER TUBE SCH (21:25)
[2020-05-09] MEDS: levETIRAcetam LIQUID 100 MG/ML 30 ML/BOTTLE PER TUBE SCH (21:25)
[2020-05-10] MEDS: INSULIN LISPRO 100 UNIT/ML SUBCUT SCH (00:17)
[2020-05-10] MEDS: INSULIN REGULAR DRIP 100 ML IV PRN ×2 (00:30→05:59)
[2020-05-10] MEDS: CEFEPIME 1,000 MG in SODIUM CHLORIDE 0.9% 100 ML IV SCH ×4 (00:40→18:45)
[2020-05-10] MEDS: DEXMEDETOMIDINE 200 MCG in SODIUM CHLORIDE 0.9% 48 ML IV PRN ×5 (02:11→23:26)
[2020-05-10] MEDS ORDERED: INSULIN REGULAR 100 UNIT/ML IV ONE (02:52)
[2020-05-10 04:07] LABS: ABG HCO3 22.7 MMOL/L (20-26); ABG PCO2 35.5 MM HG (35-48); ABG PH 7.403 (7.35-7.45); ABG PO2 96.7 MM HG (80-95); ABG TCO2 19.5 MMOL/L (23-27); Allen Test Positive; Pt O2 Delivery Device Ventilator
[2020-05-10 04:55] LABS: Basophils % 0.1 % (0.0-0.8); Hematocrit 36.4 VOL% (42.0-52.0); Hemoglobin 11.9 GM/DL (14.0-18.0); Immature Granulocytes % 0.8 %; Immature Granulocytes Absolute 0.09 #; Lymphocytes # 0.8 10*3/uL (1.4-4.0); Lymphocytes % 7.3 % (21.2-54.2); Mean Corpuscular HGB Conc 32.7 GM/DL (32-36); Mean Corpuscular Volume 101.7 FL (87-102); Mean Platelet Volume 13.4 FL (9.6-12.0); Monocytes % 5.4 % (1.7-12.7); NRBC # 0.03 10*3/uL; Neutrophils % 86.4 % (38.7-73.9); Platelet Count 107 T/CUMM (130-400); Red Blood Count 3.58 MC/CUMM (3.8-5.5); Red Cell Distribution Width 12.7 % (9.3-17.3); White Blood Count 11.1 T/CUMM (4-12)
[2020-05-10 05:13] LABS: Hypochromasia 1+; Microcytosis Slight; Platelet Estimate Decreased
[2020-05-10 05:34] LABS: Calcium 9.6 MG/DL (8.5-10.1); Osmolality,Calculated 308.3 MOS/KG (273-304)
[2020-05-10] MEDS: DEXAMETHASONE 4 MG/1 ML VIAL IV SCH (08:10)
[2020-05-10] MEDS: FAMOTIDINE 20 MG TABLET PER TUBE SCH (08:10)
[2020-05-10] MEDS: DOCUSATE SODIUM 100 MG CAPSULE PO SCH ×2 (08:10→22:00)
[2020-05-10] MEDS: CHOLECALCIFEROL 1,000 UNIT TABLET PO SCH (08:10)
[2020-05-10] MEDS: FENOFIBRATE 145 MG TABLET PO SCH (08:10)
[2020-05-10] MEDS: DILTIAZEM 30 MG TABLET PO SCH ×4 (08:11→22:00)
[2020-05-10] MEDS: ENOXAPARIN 60 MG/0.6 ML SYRINGE SUBCUT SCH ×2 (08:11→22:00)
[2020-05-10] MEDS: levETIRAcetam LIQUID 100 MG/ML 30 ML/BOTTLE PER TUBE SCH ×2 (08:13→22:00)
[2020-05-10] MEDS: INSULIN REGULAR 100 UNIT/ML SUBCUT SCH ×4 (11:18→23:28)
[2020-05-10] MEDS: INSULIN REGULAR ** CONC 500 UNIT/ML ** 20 ML VIAL SUBCUT SCH ×2 (13:11→16:25)
[2020-05-10 21:29] LABS: ABG Base Excess -2.3 MMOL/L (-2.5-2.5); ABG HCO3 22.4 MMOL/L (20-26); ABG Oxygen Saturation 91.1 % (95-100); ABG PCO2 46.5 MM HG (35-48); ABG PH 7.324 (7.35-7.45); ABG PO2 72.4 MM HG (80-95); ABG TCO2 21.3 MMOL/L (23-27); Allen Test Positive; Pt O2 Delivery Device Ventilator
[2020-05-10] MEDS: ROCURONIUM 500 MG in SODIUM CHLORIDE 0.9% 500 ML IV PRN (21:58)
[2020-05-10] MEDS: PRASUGREL 10 MG TABLET PER TUBE SCH (22:00)
[2020-05-10] MEDS: ASPIRIN EC 81 MG TABLET PO SCH (22:00)
[2020-05-10] MEDS: ATORVASTATIN 40 MG TABLET PER TUBE SCH (22:00)
[2020-05-11] MEDS: CEFEPIME 1,000 MG in SODIUM CHLORIDE 0.9% 100 ML IV SCH ×5 (01:30→23:57)
[2020-05-11] MEDS: DEXMEDETOMIDINE 200 MCG in SODIUM CHLORIDE 0.9% 48 ML IV PRN ×5 (01:43→19:39)
[2020-05-11 02:41] LABS: ABG HCO3 21.6 MMOL/L (20-26); ABG Oxygen Saturation 81.8 % (95-100); ABG PCO2 64.1 MM HG (35-48); ABG PH 7.222 (7.35-7.45); ABG PO2 59.6 MM HG (80-95); ABG TCO2 23.9 MMOL/L (23-27); Allen Test Positive; Pt O2 Delivery Device Ventilator
[2020-05-11 05:14] LABS: Basophils % 0.1 % (0.0-0.8); Hematocrit 37.5 VOL% (42.0-52.0); Hemoglobin 12.1 GM/DL (14.0-18.0); Immature Granulocytes % 0.5 %; Immature Granulocytes Absolute 0.05 #; Lymphocytes # 0.4 10*3/uL (1.4-4.0); Lymphocytes % 3.9 % (21.2-54.2); Mean Corpuscular HGB Conc 32.3 GM/DL (32-36); Mean Corpuscular Volume 104.2 FL (87-102); Mean Platelet Volume 13.9 FL (9.6-12.0); Monocytes % 3.9 % (1.7-12.7); NRBC # 0.08 10*3/uL; Neutrophils % 91.6 % (38.7-73.9); Platelet Count 91 T/CUMM (130-400); Red Cell Distribution Width 12.8 % (9.3-17.3); White Blood Count 9.9 T/CUMM (4-12)
[2020-05-11] MEDS: INSULIN REGULAR 100 UNIT/ML SUBCUT SCH ×6 (05:26→23:39)
[2020-05-11 05:32] LABS: Band Neutrophils 1 % (0-10); Lymphocytes 3 % (20-55); Microcytosis Slight; Platelet Estimate Decreased; Segmented Neutrophils 95 % (50-85); Total Cells Counted 100
[2020-05-11 05:34] LABS: Calcium 8.8 MG/DL (8.5-10.1)
[2020-05-11 05:54] LABS: Ferritin 726.4 ng/ml (26-388)
[2020-05-11] MEDS: methylPREDNISolone SOD SUC 125 MG/2 ML VIAL IV SCH ×3 (06:29→22:10)
[2020-05-11] MEDS: DEXAMETHASONE 4 MG/1 ML VIAL IV SCH (08:08)
[2020-05-11] MEDS: DOCUSATE SODIUM 100 MG CAPSULE PO SCH ×2 (08:09→20:06)
[2020-05-11] MEDS: FENOFIBRATE 145 MG TABLET PO SCH (08:09)
[2020-05-11] MEDS: CHOLECALCIFEROL 1,000 UNIT TABLET PO SCH (08:09)
[2020-05-11] MEDS: FAMOTIDINE 20 MG TABLET PER TUBE SCH (08:09)
[2020-05-11] MEDS: levETIRAcetam LIQUID 100 MG/ML 30 ML/BOTTLE PER TUBE SCH ×2 (08:10→20:06)
[2020-05-11] MEDS: HEPARIN DRIP 25,000 UNITS/500 ML PREMIX IV SCH (08:25)
[2020-05-11] MEDS: ROCURONIUM 500 MG in SODIUM CHLORIDE 0.9% 500 ML IV PRN ×2 (09:34→19:40)
[2020-05-11] MEDS ORDERED: PHENYLEPHRINE DRIP 40 MG/250 ML PREMIX IV ONE (09:39)
[2020-05-11] MEDS: PHENYLEPHRINE DRIP 40 MG/250 ML PREMIX IV PRN (09:45)
[2020-05-11] MEDS: DILTIAZEM 30 MG TABLET PO SCH ×4 (10:36→20:06)
[2020-05-11] MEDS: INSULIN REGULAR ** CONC 500 UNIT/ML ** 20 ML VIAL SUBCUT SCH ×2 (11:28→15:56)
[2020-05-11] MEDS: MIDAZOLAM 100 MG in SODIUM CHLORIDE 0.9% 80 ML IV PRN (14:35)
[2020-05-11] MEDS ORDERED: HEPARIN 5,000 UNIT/1 ML VIAL IV PRN (15:57)
[2020-05-11] MEDS: DEXMEDETOMIDINE 400 MCG in SODIUM CHLORIDE 0.9% 96 ML IV PRN (19:39)
[2020-05-11] MEDS: ACETAMINOPHEN 325 MG TABLET PO PRN (20:04)
[2020-05-11] MEDS: ASPIRIN EC 81 MG TABLET PO SCH (20:05)
[2020-05-11] MEDS: ATORVASTATIN 40 MG TABLET PER TUBE SCH (20:06)
[2020-05-11] MEDS: PRASUGREL 10 MG TABLET PER TUBE SCH (20:06)
[2020-05-12] MEDS: DEXMEDETOMIDINE 400 MCG in SODIUM CHLORIDE 0.9% 96 ML IV PRN (00:43)
[2020-05-12] MEDS: MIDAZOLAM 100 MG in SODIUM CHLORIDE 0.9% 80 ML IV PRN ×3 (00:44→21:46)
[2020-05-12] MEDS: INSULIN REGULAR 100 UNIT/ML SUBCUT SCH ×4 (04:13→16:58)
[2020-05-12] MEDS: ROCURONIUM 500 MG in SODIUM CHLORIDE 0.9% 500 ML IV PRN ×2 (04:32→14:07)
[2020-05-12 05:06] LABS: Hematocrit 30.4 VOL% (42.0-52.0); Immature Granulocytes % 0.5 %; Immature Granulocytes Absolute 0.02 #; Lymphocytes # 0.5 10*3/uL (1.4-4.0); Mean Corpuscular HGB Conc 31.6 GM/DL (32-36); Mean Corpuscular Volume 105.6 FL (87-102); Mean Platelet Volume 14.5 FL (9.6-12.0); Monocytes % 2.2 % (1.7-12.7); NRBC # 0.08 10*3/uL; Neutrophils % 84.3 % (38.7-73.9); Red Blood Count 2.88 MC/CUMM (3.8-5.5)
[2020-05-12 05:14] LABS: ABG Base Excess -4.4 MMOL/L (-2.5-2.5); ABG HCO3 20.7 MMOL/L (20-26); ABG Oxygen Saturation 91.9 % (95-100); ABG PCO2 37.9 MM HG (35-48); ABG PH 7.347 (7.35-7.45); ABG PO2 69.1 MM HG (80-95); ABG TCO2 18.4 MMOL/L (23-27); Allen Test Positive; Pt O2 Delivery Device Ventilator
[2020-05-12 05:17] LABS: White Blood Count 4.1 T/CUMM (4-12)
[2020-05-12 05:18] LABS: Hemoglobin 9.6 GM/DL (14.0-18.0); Platelet Count 68 T/CUMM (130-400)
[2020-05-12 05:25] LABS: Hypochromasia Slight; Lymphocytes 7 % (20-55); Microcytosis Slight; Nucleated Red Blood Cells 2 (0-5); Osmolality,Calculated 333.9 MOS/KG (273-304); Ovalocytes Slight; Platelet Estimate Decreased; Segmented Neutrophils 92 % (50-85); Total Cells Counted 100
[2020-05-12] MEDS: methylPREDNISolone SOD SUC 125 MG/2 ML VIAL IV SCH ×3 (06:21→22:57)
[2020-05-12] MEDS: CEFEPIME 1,000 MG in SODIUM CHLORIDE 0.9% 100 ML IV SCH ×2 (06:21→14:40)
[2020-05-12] MEDS: HEPARIN DRIP 25,000 UNITS/500 ML PREMIX IV SCH ×2 (09:35→17:10)
[2020-05-12] MEDS: INSULIN REGULAR ** CONC 500 UNIT/ML ** 20 ML VIAL SUBCUT SCH ×3 (10:01→16:58)
[2020-05-12] MEDS: CHOLECALCIFEROL 1,000 UNIT TABLET PO SCH (10:01)
[2020-05-12] MEDS: FENOFIBRATE 145 MG TABLET PO SCH (10:02)
[2020-05-12] MEDS: DOCUSATE SODIUM 100 MG CAPSULE PO SCH ×2 (10:02→20:50)
[2020-05-12] MEDS: FAMOTIDINE 20 MG TABLET PER TUBE SCH (10:07)
[2020-05-12] MEDS: levETIRAcetam LIQUID 100 MG/ML 30 ML/BOTTLE PER TUBE SCH ×2 (10:08→21:30)
[2020-05-12] MEDS: DILTIAZEM 30 MG TABLET PO SCH ×4 (10:08→20:51)
[2020-05-12] MEDS ORDERED: FONDAPARINUX 2.5 MG/0.5 ML SYRINGE SUBCUT SCH (12:00)
[2020-05-12] MEDS ORDERED: FONDAPARINUX 7.5 MG/0.6 ML SYRINGE SUBCUT SCH (12:00)
[2020-05-12] MEDS: ARIXTRA SUBCUT SCH (16:50)
[2020-05-12] MEDS ORDERED: DEXMEDETOMIDINE 400 MCG in DEXTROSE 5% 96 ML IV PRN (17:57)
[2020-05-12] MEDS ORDERED: MIDAZOLAM 100 MG in DEXTROSE 5% 80 ML IV PRN (17:58)
[2020-05-12] MEDS: ATORVASTATIN 40 MG TABLET PER TUBE SCH (20:50)
[2020-05-12] MEDS: CEFEPIME 1,000 MG in DEXTROSE 5% 100 ML IV SCH (20:51)
[2020-05-13] MEDS: ROCURONIUM 500 MG in SODIUM CHLORIDE 0.9% 500 ML IV PRN ×2 (00:24→11:52)
[2020-05-13] MEDS: CEFEPIME 1,000 MG in DEXTROSE 5% 100 ML IV SCH ×4 (03:55→20:52)
[2020-05-13 04:37] LABS: Basophils % 0.1 % (0.0-0.8); Hematocrit 30.1 VOL% (42.0-52.0); Hemoglobin 9.9 GM/DL (14.0-18.0); Immature Granulocytes % 0.8 %; Immature Granulocytes Absolute 0.06 #; Lymphocytes # 0.3 10*3/uL (1.4-4.0); Lymphocytes % 3.2 % (21.2-54.2); Mean Corpuscular HGB Conc 32.9 GM/DL (32-36); Mean Corpuscular Volume 100.3 FL (87-102); Monocytes % 3.8 % (1.7-12.7); NRBC # 0.07 10*3/uL; Neutrophils % 92.1 % (38.7-73.9); Platelet Count 74 T/CUMM (130-400); Red Cell Distribution Width 12.9 % (9.3-17.3); White Blood Count 7.8 T/CUMM (4-12)
[2020-05-13 04:59] LABS: Hypochromasia 1+; Lymphocytes 3 % (20-55); Nucleated Red Blood Cells 1 (0-5); Platelet Estimate Decreased; Segmented Neutrophils 96 % (50-85); Total Cells Counted 100
[2020-05-13 05:00] LABS: Microcytosis Slight
[2020-05-13 05:05] LABS: Osmolality,Calculated 323.6 MOS/KG (273-304)
[2020-05-13 05:22] LABS: ABG Base Excess -4.4 MMOL/L (-2.5-2.5); ABG HCO3 20.8 MMOL/L (20-26); ABG Oxygen Saturation 99.2 % (95-100); ABG PCO2 38.6 MM HG (35-48); ABG PH 7.343 (7.35-7.45); ABG TCO2 19.2 MMOL/L (23-27); Allen Test Positive; Pt O2 Delivery Device Ventilator
[2020-05-13] MEDS: methylPREDNISolone SOD SUC 125 MG/2 ML VIAL IV SCH ×3 (06:44→22:48)
[2020-05-13] MEDS: INSULIN REGULAR ** CONC 500 UNIT/ML ** 20 ML VIAL SUBCUT SCH ×4 (08:18→20:52)
[2020-05-13] MEDS: CHOLECALCIFEROL 1,000 UNIT TABLET PO SCH (08:19)
[2020-05-13] MEDS: FENOFIBRATE 145 MG TABLET PO SCH (08:19)
[2020-05-13] MEDS: DOCUSATE SODIUM 100 MG CAPSULE PO SCH ×2 (08:19→20:04)
[2020-05-13] MEDS: DILTIAZEM 30 MG TABLET PO SCH ×4 (08:21→20:03)
[2020-05-13] MEDS: levETIRAcetam LIQUID 100 MG/ML 30 ML/BOTTLE PER TUBE SCH ×2 (08:22→20:53)
[2020-05-13] MEDS ORDERED: PANTOPRAZOLE 40 MG TABLET PO SCH (09:00)
[2020-05-13] MEDS: PANTOPRAZOLE 40 MG VIAL IV SCH (09:24)
[2020-05-13] MEDS: ARIXTRA SUBCUT SCH (13:10)
[2020-05-13] MEDS: ROCURONIUM IV PRN ×2 (16:30→23:27)
[2020-05-13] MEDS: DEXTROSE 5% IV PRN ×2 (16:30→23:27)
[2020-05-13] MEDS: ATORVASTATIN 40 MG TABLET PER TUBE SCH (20:02)
[2020-05-14] MEDS: cloNIDine 0.3 MG/24 HR PATCH TRANSDERM SCH ×2 (00:38→09:32)
[2020-05-14] MEDS: CEFEPIME 1,000 MG in DEXTROSE 5% 100 ML IV SCH ×4 (03:25→20:07)
[2020-05-14 04:04] LABS: Basophils % 0.1 % (0.0-0.8); Hematocrit 29.8 VOL% (42.0-52.0); Hemoglobin 9.8 GM/DL (14.0-18.0); Immature Granulocytes % 2.5 %; Immature Granulocytes Absolute 0.22 #; Lymphocytes # 0.3 10*3/uL (1.4-4.0); Lymphocytes % 3.5 % (21.2-54.2); Mean Corpuscular HGB Conc 32.9 GM/DL (32-36); Mean Platelet Volume 13.8 FL (9.6-12.0); Monocytes % 4.4 % (1.7-12.7); NRBC # 0.21 10*3/uL; Neutrophils % 89.5 % (38.7-73.9); Red Blood Count 3.01 MC/CUMM (3.8-5.5); Red Cell Distribution Width 12.8 % (9.3-17.3); White Blood Count 8.8 T/CUMM (4-12)
[2020-05-14 04:11] LABS: Platelet Count 74 T/CUMM (130-400)
[2020-05-14 04:12] LABS: ABG Base Excess -3.4 MMOL/L (-2.5-2.5); ABG HCO3 22.4 MMOL/L (20-26); ABG Oxygen Saturation 96.9 % (95-100); ABG PCO2 43.2 MM HG (35-48); ABG PH 7.332 (7.35-7.45); ABG PO2 109.6 MM HG (80-95); ABG TCO2 23.7 MMOL/L (23-27); Allen Test Positive; Pt O2 Delivery Device Ventilator
[2020-05-14 04:22] LABS: Albumin 1.6 G/DL (3.4-5.0); Bilirubin,Total 0.8 MG/DL (0.2-1.0); Calcium 8.2 MG/DL (8.5-10.1); Osmolality,Calculated 311.7 MOS/KG (273-304); Total Protein 5.9 G/DL (6.4-8.3)
[2020-05-14 04:45] LABS: Band Neutrophils 2 % (0-10); Lymphocytes 3 % (20-55); Myelocytes 1 %; Nucleated Red Blood Cells 2 (0-5); Segmented Neutrophils 91 % (50-85); Total Cells Counted 100
[2020-05-14 04:46] LABS: Hypochromasia Slight; Microcytosis Slight; Platelet Estimate Decreased; Polychromasia Slight
[2020-05-14] MEDS: INSULIN REGULAR ** CONC 500 UNIT/ML ** 20 ML VIAL SUBCUT SCH ×3 (05:00→20:45)
[2020-05-14] MEDS: methylPREDNISolone SOD SUC 125 MG/2 ML VIAL IV SCH ×3 (05:39→22:15)
[2020-05-14] MEDS: PANTOPRAZOLE 40 MG VIAL IV SCH (09:32)
[2020-05-14] MEDS: CHOLECALCIFEROL 1,000 UNIT TABLET PO SCH (09:34)
[2020-05-14] MEDS: FENOFIBRATE 145 MG TABLET PO SCH (09:34)
[2020-05-14] MEDS: DILTIAZEM 30 MG TABLET PO SCH ×4 (09:35→20:06)
[2020-05-14] MEDS: DOCUSATE SODIUM 100 MG CAPSULE PO SCH ×2 (09:35→20:06)
[2020-05-14] MEDS: levETIRAcetam LIQUID 100 MG/ML 30 ML/BOTTLE PER TUBE SCH ×2 (09:36→20:06)
[2020-05-14] MEDS ORDERED: hydrALAZINE 20 MG/1 ML VIAL IV PRN (10:23)
[2020-05-14] MEDS ORDERED: hydrALAZINE 20 MG/1 ML VIAL ONE (10:25)
[2020-05-14] MEDS: FLUCONAZOLE INJ 200 MG in PREMIX 1 EACH IV SCH (11:32)
[2020-05-14] MEDS: ARIXTRA SUBCUT SCH (13:54)
[2020-05-14] MEDS: ATORVASTATIN 40 MG TABLET PER TUBE SCH (20:06)
[2020-05-15] MEDS: CEFEPIME 1,000 MG in DEXTROSE 5% 100 ML IV SCH ×2 (03:20→08:05)
[2020-05-15 03:47] LABS: Allen Test Positive; Pt O2 Delivery Device Ventilator
[2020-05-15 03:48] LABS: ABG Base Excess -7.6 MMOL/L (-2.5-2.5); ABG HCO3 18.2 MMOL/L (20-26); ABG PCO2 57.1 MM HG (35-48); ABG PO2 75.3 MM HG (80-95); ABG TCO2 19.9 MMOL/L (23-27)
[2020-05-15 03:49] LABS: ABG PH 7.184 (7.35-7.45)
[2020-05-15 05:00] LABS: Basophils % 0.2 % (0.0-0.8); Hematocrit 33.3 VOL% (42.0-52.0); Hemoglobin 10.7 GM/DL (14.0-18.0); Immature Granulocytes % 1.8 %; Immature Granulocytes Absolute 0.27 #; Lymphocytes # 0.4 10*3/uL (1.4-4.0); Lymphocytes % 2.6 % (21.2-54.2); Mean Corpuscular HGB Conc 32.1 GM/DL (32-36); Mean Corpuscular Volume 104.7 FL (87-102); Mean Platelet Volume 14.6 FL (9.6-12.0); Monocytes % 5.3 % (1.7-12.7); NRBC # 0.98 10*3/uL; Neutrophils % 90.1 % (38.7-73.9); Platelet Count 115 T/CUMM (130-400); Red Blood Count 3.18 MC/CUMM (3.8-5.5); Red Cell Distribution Width 13.6 % (9.3-17.3); White Blood Count 14.7 T/CUMM (4-12)
[2020-05-15] MEDS: methylPREDNISolone SOD SUC 125 MG/2 ML VIAL IV SCH ×3 (06:07→17:40)
[2020-05-15] MEDS: INSULIN REGULAR ** CONC 500 UNIT/ML ** 20 ML VIAL SUBCUT SCH ×3 (06:07→20:49)
[2020-05-15 06:11] LABS: Band Neutrophils 1 % (0-10); Hypochromasia Slight; Lymphocytes 1 % (20-55); Nucleated Red Blood Cells 8 (0-5); Promyelocytes 1 %; Segmented Neutrophils 95 % (50-85); Total Cells Counted 100
[2020-05-15 06:12] LABS: Microcytosis Slight; Platelet Estimate Adequate; Polychromasia Slight
[2020-05-15] MEDS ORDERED: SODIUM BICARBONATE 50 MEQ/50 ML VIAL IV ONE ×3 (06:30→09:19)
[2020-05-15 07:42] LABS: Albumin 1.6 G/DL (3.4-5.0); Bilirubin,Total 0.4 MG/DL (0.2-1.0); Calcium 7.8 MG/DL (8.5-10.1); Osmolality,Calculated 325.3 MOS/KG (273-304); Total Protein 6.1 G/DL (6.4-8.3)
[2020-05-15] MEDS: DOCUSATE SODIUM 100 MG CAPSULE PO SCH ×2 (08:05→20:01)
[2020-05-15] MEDS: FENOFIBRATE 145 MG TABLET PO SCH (08:05)
[2020-05-15] MEDS: DILTIAZEM 30 MG TABLET PO SCH ×4 (08:05→20:01)
[2020-05-15] MEDS: CHOLECALCIFEROL 1,000 UNIT TABLET PO SCH (08:05)
[2020-05-15] MEDS: SODIUM BICARB INJ 100 MEQ in STERILE WATER INJ 1,000 ML IV SCH (08:05)
[2020-05-15] MEDS: PANTOPRAZOLE 40 MG VIAL IV SCH (08:05)
[2020-05-15] MEDS: levETIRAcetam LIQUID 100 MG/ML 30 ML/BOTTLE PER TUBE SCH ×2 (08:05→20:49)
[2020-05-15 08:37] LABS: ABG Base Excess -7.3 MMOL/L (-2.5-2.5); ABG HCO3 21.9 MMOL/L (20-26); ABG Oxygen Saturation 93.9 % (95-100); ABG PCO2 64.1 MM HG (35-48); ABG PO2 89.4 MM HG (80-95); ABG TCO2 23.9 MMOL/L (23-27); Pt O2 Delivery Device Ventilator
[2020-05-15 08:38] LABS: ABG PH 7.152 (7.35-7.45)
[2020-05-15 10:38] LABS: ABG Base Excess -3.2 MMOL/L (-2.5-2.5); ABG HCO3 24.8 MMOL/L (20-26); ABG Oxygen Saturation 95.2 % (95-100); ABG PCO2 59.5 MM HG (35-48); ABG PH 7.237 (7.35-7.45); ABG PO2 91.9 MM HG (80-95); ABG TCO2 26.6 MMOL/L (23-27); Allen Test Positive; Pt O2 Delivery Device Ventilator
[2020-05-15] MEDS: FLUCONAZOLE INJ 200 MG in PREMIX 1 EACH IV SCH (11:49)
[2020-05-15] MEDS: CEFEPIME 1,000 MG in SODIUM CHLORIDE 0.9% 100 ML IV SCH ×2 (15:24→20:50)
[2020-05-15] MEDS: ARIXTRA SUBCUT SCH (15:25)
[2020-05-15] MEDS: ATORVASTATIN 40 MG TABLET PER TUBE SCH (20:01)
[2020-05-16] MEDS: methylPREDNISolone SOD SUC 125 MG/2 ML VIAL IV SCH ×3 (02:11→17:34)
[2020-05-16 04:00] LABS: ABG Base Excess -2.8 MMOL/L (-2.5-2.5); ABG HCO3 23.8 MMOL/L (20-26); ABG PCO2 49.5 MM HG (35-48); ABG PH 7.299 (7.35-7.45); ABG PO2 95.1 MM HG (80-95); ABG TCO2 25.3 MMOL/L (23-27); Allen Test Positive; Pt O2 Delivery Device Ventilator
[2020-05-16 04:21] LABS: Basophils % 0.2 % (0.0-0.8); Hematocrit 27.2 VOL% (42.0-52.0); Hemoglobin 8.9 GM/DL (14.0-18.0); Immature Granulocytes % 1.8 %; Immature Granulocytes Absolute 0.22 #; Lymphocytes # 0.4 10*3/uL (1.4-4.0); Lymphocytes % 3.3 % (21.2-54.2); Mean Corpuscular HGB Conc 32.7 GM/DL (32-36); Mean Corpuscular Volume 104.2 FL (87-102); Mean Platelet Volume 14.2 FL (9.6-12.0); Monocytes % 3.7 % (1.7-12.7); Red Blood Count 2.61 MC/CUMM (3.8-5.5); White Blood Count 12.3 T/CUMM (4-12)
[2020-05-16 04:23] LABS: Platelet Count 85 T/CUMM (130-400)
[2020-05-16] MEDS: CEFEPIME 1,000 MG in SODIUM CHLORIDE 0.9% 100 ML IV SCH ×4 (04:36→21:00)
[2020-05-16 04:42] LABS: Albumin 1.3 G/DL (3.4-5.0); Bilirubin,Total 0.4 MG/DL (0.2-1.0); Calcium 6.9 MG/DL (8.5-10.1); Osmolality,Calculated 329.3 MOS/KG (273-304)
[2020-05-16 05:37] LABS: Anisocytosis 2+; Band Neutrophils 14 % (0-10); Basophilic Stippling Slight; Lymphocytes 3 % (20-55); Macrocytosis 1+; Nucleated Red Blood Cells 9 (0-5); Platelet Estimate Decreased; Polychromasia Slight; Segmented Neutrophils 83 % (50-85); Smudge Cells 1+; Total Cells Counted 100
[2020-05-16] MEDS: SODIUM BICARB INJ 100 MEQ in STERILE WATER INJ 1,000 ML IV SCH ×2 (05:57→06:13)
[2020-05-16] MEDS: INSULIN REGULAR ** CONC 500 UNIT/ML ** 20 ML VIAL SUBCUT SCH ×3 (05:57→22:12)
[2020-05-16] MEDS: CHOLECALCIFEROL 1,000 UNIT TABLET PO SCH (08:14)
[2020-05-16] MEDS: PANTOPRAZOLE 40 MG VIAL IV SCH (08:14)
[2020-05-16] MEDS: DILTIAZEM 30 MG TABLET PO SCH ×4 (08:15→20:49)
[2020-05-16] MEDS: FENOFIBRATE 145 MG TABLET PO SCH (08:15)
[2020-05-16] MEDS: DOCUSATE SODIUM 100 MG CAPSULE PO SCH ×2 (08:23→20:49)
[2020-05-16] MEDS: levETIRAcetam LIQUID 100 MG/ML 30 ML/BOTTLE PER TUBE SCH ×2 (08:23→20:49)
[2020-05-16] MEDS: FLUCONAZOLE INJ 200 MG in PREMIX 1 EACH IV SCH (11:55)
[2020-05-16] MEDS: ARIXTRA SUBCUT SCH (17:34)
[2020-05-16] MEDS: ATORVASTATIN 40 MG TABLET PER TUBE SCH (20:49)
[2020-05-17] MEDS: ACETAMINOPHEN 325 MG TABLET PO PRN (00:20)
[2020-05-17] MEDS: methylPREDNISolone SOD SUC 125 MG/2 ML VIAL IV SCH ×4 (01:39→17:31)
[2020-05-17] MEDS: PHENYLEPHRINE DRIP 40 MG/250 ML PREMIX IV PRN ×3 (01:40→18:36)
[2020-05-17] MEDS: CEFEPIME 1,000 MG in SODIUM CHLORIDE 0.9% 100 ML IV SCH ×2 (04:12→09:02)
[2020-05-17] MEDS: INSULIN REGULAR ** CONC 500 UNIT/ML ** 20 ML VIAL SUBCUT SCH ×3 (04:12→21:56)
[2020-05-17] MEDS: SODIUM BICARB INJ 100 MEQ in STERILE WATER INJ 1,000 ML IV SCH (04:12)
[2020-05-17 04:20] LABS: Basophils # 0.1 10*3/uL (0.0-0.2); Basophils % 0.4 % (0.0-0.8); Hematocrit 24.9 VOL% (42.0-52.0); Hemoglobin 8.1 GM/DL (14.0-18.0); Immature Granulocytes % 5.4 %; Immature Granulocytes Absolute 1.06 #; Lymphocytes # 1.1 10*3/uL (1.4-4.0); Lymphocytes % 5.8 % (21.2-54.2); Mean Corpuscular HGB Conc 32.5 GM/DL (32-36); Mean Corpuscular Volume 103.8 FL (87-102); Mean Platelet Volume 14.4 FL (9.6-12.0); Monocytes % 3.9 % (1.7-12.7); NRBC # 3.84 10*3/uL; Neutrophils % 84.5 % (38.7-73.9); Platelet Count 113 T/CUMM (130-400); Red Cell Distribution Width 14.8 % (9.3-17.3); White Blood Count 19.6 T/CUMM (4-12)
[2020-05-17 04:30] LABS: Osmolality,Calculated 329.7 MOS/KG (273-304)
[2020-05-17 04:46] LABS: ABG Base Excess -4.8 MMOL/L (-2.5-2.5); ABG HCO3 20.4 MMOL/L (20-26); ABG Oxygen Saturation 95.6 % (95-100); ABG PH 7.247 (7.35-7.45); ABG PO2 88.1 MM HG (80-95); ABG TCO2 21.5 MMOL/L (23-27); Allen Test Positive; Pt O2 Delivery Device Ventilator
[2020-05-17] MEDS: DEXTROSE 10% 250 ML BAG IV PRN (05:00)
[2020-05-17 05:54] LABS: Band Neutrophils 4 % (0-10); Lymphocytes 5 % (20-55); Metamyelocytes 3 %; Myelocytes 4 %; Nucleated Red Blood Cells 20 (0-5); Platelet Estimate Decreased; Segmented Neutrophils 81 % (50-85); Total Cells Counted 100
[2020-05-17 05:55] LABS: Anisocytosis 3+; Macrocytosis 2+; Microcytosis 1+; Polychromasia 1+
[2020-05-17] MEDS: DOCUSATE SODIUM 100 MG CAPSULE PO SCH ×2 (08:00→21:56)
[2020-05-17] MEDS: FENOFIBRATE 145 MG TABLET PO SCH (08:00)
[2020-05-17] MEDS: CHOLECALCIFEROL 1,000 UNIT TABLET PO SCH (08:00)
[2020-05-17] MEDS: PANTOPRAZOLE 40 MG VIAL IV SCH (08:01)
[2020-05-17] MEDS: levETIRAcetam LIQUID 100 MG/ML 30 ML/BOTTLE PER TUBE SCH ×2 (08:03→21:56)
[2020-05-17] MEDS: DILTIAZEM 30 MG TABLET PO SCH ×4 (08:04→21:55)
[2020-05-17] MEDS: FLUCONAZOLE INJ 200 MG in PREMIX 1 EACH IV SCH (13:45)
[2020-05-17] MEDS: ARIXTRA SUBCUT SCH (13:57)
[2020-05-17] MEDS: ATORVASTATIN 40 MG TABLET PER TUBE SCH (21:56)
[2020-05-18] MEDS: methylPREDNISolone SOD SUC 125 MG/2 ML VIAL IV SCH ×2 (01:45→09:10)
[2020-05-18] MEDS: SODIUM BICARB INJ 100 MEQ in STERILE WATER INJ 1,000 ML IV SCH ×2 (02:12→02:26)
[2020-05-18 04:44] LABS: ABG Base Excess -11.7 MMOL/L (-2.5-2.5); ABG Oxygen Saturation 93.7 % (95-100); ABG PCO2 55.9 MM HG (35-48); ABG PO2 89.7 MM HG (80-95); ABG TCO2 17.3 MMOL/L (23-27); Allen Test Positive; Pt O2 Delivery Device Ventilator
[2020-05-18 04:51] LABS: ABG PH 7.106 (7.35-7.45)
[2020-05-18 04:56] LABS: Basophils % 0.1 % (0.0-0.8); Hematocrit 22.9 VOL% (42.0-52.0); Hemoglobin 7.1 GM/DL (14.0-18.0); Immature Granulocytes % 1.6 %; Immature Granulocytes Absolute 0.36 #; Lymphocytes # 0.5 10*3/uL (1.4-4.0); Lymphocytes % 2.3 % (21.2-54.2); Mean Corpuscular Volume 108.5 FL (87-102); Mean Platelet Volume 14.6 FL (9.6-12.0); Monocytes % 2.6 % (1.7-12.7); NRBC # 1.68 10*3/uL; Neutrophils % 93.4 % (38.7-73.9); Platelet Count 111 T/CUMM (130-400); Red Blood Count 2.11 MC/CUMM (3.8-5.5); Red Cell Distribution Width 15.6 % (9.3-17.3); White Blood Count 22.7 T/CUMM (4-12)
[2020-05-18] MEDS ORDERED: NOREPINEPHRINE 4 MG/4 ML VIAL IV ONE ×2 (05:21→09:57)
[2020-05-18 05:26] LABS: Lymphocytes 2 % (20-55); Nucleated Red Blood Cells 10 (0-5); Platelet Estimate Decreased; Segmented Neutrophils 94 % (50-85); Total Cells Counted 100
[2020-05-18 05:27] LABS: Hypochromasia 1+; Macrocytosis Slight; Polychromasia Slight
[2020-05-18] MEDS: NOREPINEPHRINE 8 MG in SODIUM CHLORIDE 0.9% 242 ML IV PRN ×2 (05:28→10:10)
[2020-05-18 05:42] LABS: Calcium 6.9 MG/DL (8.5-10.1); Osmolality,Calculated 343.1 MOS/KG (273-304)
[2020-05-18] MEDS: INSULIN REGULAR ** CONC 500 UNIT/ML ** 20 ML VIAL SUBCUT SCH ×2 (06:06→13:30)
[2020-05-18] MEDS: PHENYLEPHRINE DRIP 40 MG/250 ML PREMIX IV PRN ×2 (07:29→09:36)
[2020-05-18] MEDS ORDERED: MEROPENEM 500 MG in SODIUM CHLORIDE 0.9% 100 ML IV SCH (08:00)
[2020-05-18] MEDS: FENOFIBRATE 145 MG TABLET PO SCH (08:04)
[2020-05-18] MEDS: CHOLECALCIFEROL 1,000 UNIT TABLET PO SCH (08:07)
[2020-05-18] MEDS: DILTIAZEM 30 MG TABLET PO SCH ×2 (08:08→13:30)
[2020-05-18 08:09] VITALS: BP 130/31
[2020-05-18] MEDS: PANTOPRAZOLE 40 MG VIAL IV SCH (08:09)
[2020-05-18] MEDS: DOCUSATE SODIUM 100 MG CAPSULE PO SCH (08:10)
[2020-05-18] MEDS: levETIRAcetam LIQUID 100 MG/ML 30 ML/BOTTLE PER TUBE SCH (08:10)
[2020-05-18] MEDS ORDERED: APIXABAN 5 MG TABLET PO SCH (09:00)
[2020-05-18] MEDS ORDERED: LINEZOLID INJ 600 MG in PREMIX 1 EACH IV SCH (09:00)
[2020-05-18] MEDS ORDERED: PHENYLEPHRINE INJ 160 MG in SODIUM CHLORIDE 0.9% 234 ML IV PRN (10:00)
[2020-05-18] MEDS ORDERED: NOREPINEPHRINE 16 MG in SODIUM CHLORIDE 0.9% 234 ML IV PRN (10:00)
[2020-05-18] MEDS: FLUCONAZOLE INJ 200 MG in PREMIX 1 EACH IV SCH (10:26)
[2020-05-18] MEDS ORDERED: PHENYLEPHRINE INJ 80 MG in SODIUM CHLORIDE 0.9% 242 ML IV PRN (11:00)
[2020-05-18] MEDS ORDERED: SODIUM BICARBONATE 50 MEQ/50 ML VIAL IV ONE ×5 (11:50→12:21)
== END 2020-05-18 12:35 | disposition expired | DRG 870 ==
LOC: N.ED 18:06 → SUATTDRO 21:43 → N.EDINP 21:43 → N.2E 05-01 15:18 → N.CC 05-04 05:44
PROVIDERS: ADMIT Internal Medicine; ATTEND Internal Medicine